=== PATIENT | male | born 1935 | race Caucasian/White ===

== ENCOUNTER 2019-04-01 19:13 | Inpatient (IN) | payer MEDICARE, BC ==
[~2019-04-01] VITALS: Ht 157.5 cm; Wt 57.2 kg
--- NOTE | 2019-04-01 21:50 | NUR ---
Pt. admitted to MHU , under care of Dr. CARABALLO Belongs List completed. MRSA swab done
[2019-04-01] MEDS ORDERED: LORAZEPAM 0.5 MG TABLET PO PRN (22:00)
[2019-04-01] MEDS ORDERED: TEMAZEPAM 7.5 MG CAPSULE PO PRN (22:00)
[2019-04-01] MEDS ORDERED: BLOOD SUGAR DIAGNOSTIC 1 EACH STRIP VI ONE (22:00)
[2019-04-01] MEDS ORDERED: MAGNESIUM HYDROXIDE 30 ML LIQUID UDC PO PRN (22:00)
[2019-04-01 22:29] VITALS: BP 146/70
[2019-04-01] MEDS: ACETAMINOPHEN 325 MG TABLET PO PRN (22:38)
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
[2019-04-02 07:30] VITALS: BP 149/62
[2019-04-02 08:27] LABS: CREATININE 1.1 mg/dL (0.6-1.3); TOTAL PROTEIN, SERUM 5.6 g/dL (6.4-8.2)
--- NOTE | 2019-04-02 09:00 | NUR ---
Received patient awake, alert and oriented x3 in his assigned bed. Bed is in low and locked position. Respirations are even and unlabored, no signs of respiratory distress noted. Patient is able to provide self care and ADL's independently. patient able to ambulate independently with a FWW. patient denies SI/HI, denies AH/Vh. Patient is guarded, withdrawn, and isolative to his assigned room. He is encouraged to participate in the unit milieu. Will continue to monitor.
[2019-04-02 09:03] LABS: BILIRUBIN,TOTAL 0.3 mg/dL (0.2-1.0); POTASSIUM 3.9 mmol/L (3.5-5.1)
--- NOTE | 2019-04-02 13:15 | NUR ---
Blood sugar 202. Patient refused to eat his lunch. Patient has no signs or symptoms of hyperglycemia. Educated about signs and symptoms and instructed to inform staff if these symptoms occur, able to verbalize understanding of education. patient encouraged to drink water as tolerated. alert and oriented x3. resting quietly and comfortably in his assigned bed.
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
--- NOTE | 2019-04-02 15:06 | NUR ---
Social Work/Initial Discharge Note: Patient [place] [address] [place] [address] ([phone]) with his son Jason Elliott ([phone]) and granddaughter Ivonne Wagner. Patient will be returning back home upon discharge. SW will continue to work with patient, family, and MD to ensure a safe and proper discharge plan.
--- NOTE | 2019-04-02 15:19 | NUR ---
Social Work/Firearms Report (DOJ): Cable Tool Operator completed and submitted a [employer] firearms report for 5150 danger to self certification. A copy of report has been placed in patient chart.
[2019-04-02 16:00] VITALS: BP 133/85
[2019-04-02] MEDS: ESCITALOPRAM OXALATE 10 MG TABLET PO SCH (16:06)
[2019-04-02] MEDS ORDERED: ALBUTEROL SULFATE 2.5 MG/3 ML NEBU IH PRN (17:00)
[2019-04-02] MEDS ORDERED: DEXTROSE 50% 50 ML DISP.SYRIN IV PRN (17:00)
[2019-04-02] MEDS ORDERED: Medication Not On Formulary EA (Melatonin 0.5 MG) PO PRN (17:00)
[2019-04-02] MEDS ORDERED: DOCUSATE SODIUM 100 MG CAPSULE PO SCH (17:00)
[2019-04-02] MEDS ORDERED: BISACODYL 10 MG SUPP.RECT RC PRN (17:00)
--- NOTE | 2019-04-02 17:40 | NUR ---
Blood sugar 199. Patient is showing no signs or symptoms of hyperglycemia. Educated about signs of symptoms of hyperglycemia and instructed to inform staff if these symptoms occur, able to verbalize understanding. Waiting for dinner trays at this time.
--- NOTE | 2019-04-02 18:29 | NUR ---
This sign writer letterer or painter spoke with patient's daughter. Patient's daughter provided an updated,current medication list for the patient that was provided by patient's primary care provider. Sales Producer updated patient's home medications in the medication reconciliation. Notified STAGE HAND, waiting call back.
[2019-04-02 20:20] VITALS: BP 150/67
[2019-04-02] MEDS ORDERED: HEPARIN SODIUM,PORCINE 5,000 UNITS/ML VIAL SQ SCH (21:00)
[2019-04-02] MEDS ORDERED: INSULIN GLARGINE,HUM 300 UNITS/3 ML CARTRIDGE SQ SCH (21:00)
[2019-04-02] MEDS: MIRTAZAPINE 15 MG TABLET PO SCH (21:22)
[2019-04-02] MEDS: BLOOD SUGAR DIAGNOSTIC 1 EACH STRIP VI SCH (21:22)
--- NOTE | 2019-04-02 22:00 | NUR ---
received to care, lying in bed, initially asleep, but easy to awaken. continues to deny feeling suicidal, but admits to feeling "very depressed". he was started on remeron this evening. blood sugar was 211, but coverage was not given, due to his poor intake, and continued refusal to eat anything. pt was educated on, and denied any sx of hyperglycemia. po fluids were given, and left at his bedside. as of 0, he appears to be asleep. no distress noted. will continue to monitor closely.
[2019-04-03] MEDS: BLOOD SUGAR DIAGNOSTIC 1 EACH STRIP VI SCH ×4 (06:55→21:10)
[2019-04-03 07:30] VITALS: BP 140/52
[2019-04-03] MEDS: ESCITALOPRAM OXALATE 10 MG TABLET PO SCH (08:30)
[2019-04-03] MEDS ORDERED: FAMOTIDINE 20 MG TABLET PO SCH (09:00)
[2019-04-03] MEDS ORDERED: Medication Not On Formulary EA (Escitalopram Oxalate (Lexapro) 5 MG) PO SCH (09:00)
[2019-04-03] MEDS: MAG HYDROX/AL HYDROX/SIMETH 30 ML LIQUID UDC PO PRN (10:12)
--- NOTE | 2019-04-03 11:45 | NUR ---
Gps/Terminal Make Up Operator- Showered by PRODUCT/INDUSTRY CONSULTANT. Compliant with routine meds., complained of indigestion, mylanta 30 ml was administered po with relief. Encouraged to attend his group therapy, encouraged continued verbalizations of his feelings and needs. Encouraged to eat well..Wants to eat at a later time this pm, claimed he is tired and sleepy,, BS 305 , insulin sliding scale as ordered, administered.
[2019-04-03] MEDS: INSULIN REGULAR, HUMAN 300 UNIT/3 ML VIAL SQ PRN ×3 (12:14→21:16)
--- NOTE | 2019-04-03 15:56 | NUR ---
Gps/Recreation Manager-Allen Garcia OUTREACH NURSE in to see patient, reminded to review, and check . reconciliation of patient's medications
--- NOTE | 2019-04-03 17:48 | NUR ---
Gps/Functional Support Analyst- Suzy in to visit patient, interacting with patient.
[2019-04-03 18:00] VITALS: BP 108/39
[2019-04-03 20:00] VITALS: BP 123/54
[2019-04-03] MEDS: TAMSULOSIN HCL 0.4 MG CAP.SR.24H PO SCH (20:43)
[2019-04-03] MEDS: ATORVASTATIN 40 MG TABLET PO SCH (20:43)
[2019-04-03] MEDS: MIRTAZAPINE 15 MG TABLET PO SCH (20:44)
[2019-04-03] MEDS: INSULIN GLARGINE,HUM 300 UNITS/3 ML CARTRIDGE SQ SCH (21:13)
[2019-04-03] MEDS: OLOPATADINE 0.1% OPHT DROP 5 ML BOTTLE EACHEYE SCH (21:32)
--- NOTE | 2019-04-03 22:00 | NUR ---
received to care, lying in bed, pleasant upon approach. no interactions with peers. continues to deny feeling suicidal, but admits to feeling "depressed". compliant with medications, blood sugar check, and bedtime snacks. as of 2200, he appears to be asleep. no distress noted. will continue to monitor closely.
[2019-04-04] MEDS: PANTOPRAZOLE SODIUM 40 MG TABLET.DR PO SCH (06:21)
[2019-04-04] MEDS: BLOOD SUGAR DIAGNOSTIC 1 EACH STRIP VI SCH ×4 (06:29→22:49)
--- NOTE | 2019-04-04 06:30 | NUR ---
slept well. AM blood sugar was 55; 6 oz of orange juice wa sgiven. pt does not exhibit any, and denies any sx of hypoglycemia. will continue to monitor closely.
[2019-04-04 07:30] VITALS: BP 99/46
[2019-04-04] MEDS ORDERED: SUCRALFATE 1 G TABLET PO SCH (09:00)
[2019-04-04] MEDS: CLOPIDOGREL 75 MG TABLET PO SCH (09:12)
[2019-04-04] MEDS: ASPIRIN 81 MG TAB.CHEW PO SCH (09:13)
[2019-04-04] MEDS: ESCITALOPRAM OXALATE 10 MG TABLET PO SCH (09:13)
[2019-04-04] MEDS: FERROUS SULFATE 325 MG TABEC PO SCH (09:13)
[2019-04-04] MEDS: FINASTERIDE 5 MG TABLET PO SCH (09:56)
[2019-04-04] MEDS: CALCIUM CARB/VITAMIN D 600-400 MG TABLET PO SCH ×2 (09:56→18:00)
[2019-04-04] MEDS: OLOPATADINE 0.1% OPHT DROP 5 ML BOTTLE EACHEYE SCH ×2 (10:19→21:00)
--- NOTE | 2019-04-04 12:45 | NUR ---
Gps/Bituminous Paving Machine Operator- BS 58, asymtomatic, encouraged to eat lunch, assisted with meals,patient does not want to eat too much per dispensing and measuring optician r/t indigestions . ate about 25% of his lunch., rachelle offered.
[2019-04-04 16:00] VITALS: BP 128/62
--- NOTE | 2019-04-04 16:20 | NUR ---
Gps/Cloth Washer- ELECTRIC SWITCH REPAIRER calling for assist, found pt. in his room on the floor, while trying to go to the bathroom, using a front wheel walker.Got pt. up 2 staff assisting, ambulated back to bed, b/p 128/63 Blood sugar checked 57, snacks offered, pudding given, cal cracker given Charged Nurse notified Allen Garcia TECHNICAL WRITER AND EDITOR, orders received , CT of head .
--- NOTE | 2019-04-04 16:46 | NUR ---
Gps/Hot Punch Press Operator- Patient was taken to CT of head via wheel chair accompanied by CUTTING SUPERVISOR. Patient complained of pain in the back of his head r/t to his fall.
[2019-04-04] MEDS: ACETAMINOPHEN 325 MG TABLET PO PRN (18:00)
--- NOTE | 2019-04-04 18:00 | NUR ---
Gps/Associate Director Finance- Family in to visit, was informed of the falls. Patient was bale to drink Glucerna during dinner, refused to eat tomoto soup and fruits claimed it gives hi indigestion, does not want anything acidic.
--- NOTE | 2019-04-04 18:43 | NUR ---
Gps/Cementer Machine- Kept patient up in his landry-chair , by the Nurses station, monitoring needs and safety. Family was in to visit, was informed of the incident (fall)
[2019-04-04] MEDS: TAMSULOSIN HCL 0.4 MG CAP.SR.24H PO SCH (20:54)
[2019-04-04] MEDS: ATORVASTATIN 40 MG TABLET PO SCH (20:54)
[2019-04-04] MEDS: MIRTAZAPINE 15 MG TABLET PO SCH (20:54)
[2019-04-04 21:01] VITALS: BP 92/48
[2019-04-04] MEDS: INSULIN GLARGINE,HUM 300 UNITS/3 ML CARTRIDGE SQ SCH (22:49)
[2019-04-04] MEDS: INSULIN REGULAR, HUMAN 300 UNIT/3 ML VIAL SQ PRN (22:51)
--- NOTE | 2019-04-05 06:23 | NUR ---
GPS/NSG Patient first observed awake, alert and oriented x3 with a 1:1 sitter for safety, patient suffered a fall the previous shift. Bed is in low and locked position. Initial vital signs reported B/P to be 84/40, when repeated B/P was 92/48 no signs of respiratory distress noted. Neuro checks performed Q 30 mins X four hours. Pupils equal and reactive, patient able to follow commands, hand transmission specialist appeared strong, reported a mild headache prn offered. Patient compliant with HS medication, compliant with accucheck BS= 264 coverage administered as ordered, snack provided fluids encouraged, Patient placed in a modified Trendelenburg position to create improved perfusion. B/P rechecked 103/57 @2100, 136/79 @ 2200, 137/81 @ 0030. Patient slept through night with no apparent distress. Last reported Vital signs; B/P @0630 142/59, HR 55. Addendum: 04/05/19 at 0657 by GUERITA BEDOLLA RN GPS/NSG continue: Patient awake this a.m. A/OX3, KC=828. Continue 1:1 sitter within arm length at all times for safety, patient is at increased risk for falls. CT scan resulted in no intracranial hemorrhage after recent fall. Will continue to monitor patient for safety as well as provide a therapeutic environment.
[2019-04-05 07:30] VITALS: BP 118/63
[2019-04-05] MEDS ORDERED: SUCRALFATE 1 G TABLET PO SCH (07:30)
[2019-04-05] MEDS: BLOOD SUGAR DIAGNOSTIC 1 EACH STRIP VI SCH ×4 (08:32→21:28)
[2019-04-05] MEDS: ASPIRIN 81 MG TAB.CHEW PO SCH (08:33)
[2019-04-05] MEDS: ESCITALOPRAM OXALATE 10 MG TABLET PO SCH (08:33)
[2019-04-05] MEDS: FINASTERIDE 5 MG TABLET PO SCH (08:33)
[2019-04-05] MEDS: OLOPATADINE 0.1% OPHT DROP 5 ML BOTTLE EACHEYE SCH ×2 (08:33→21:04)
[2019-04-05] MEDS: CLOPIDOGREL 75 MG TABLET PO SCH (08:33)
[2019-04-05] MEDS: FERROUS SULFATE 325 MG TABEC PO SCH (08:33)
[2019-04-05] MEDS: PANTOPRAZOLE SODIUM 40 MG TABLET.DR PO SCH (08:36)
[2019-04-05] MEDS: CALCIUM CARB/VITAMIN D 600-400 MG TABLET PO SCH ×2 (08:39→17:42)
[2019-04-05] MEDS: INSULIN REGULAR, HUMAN 300 UNIT/3 ML VIAL SQ PRN ×3 (13:15→21:29)
[2019-04-05 15:38] VITALS: BP 123/52
[2019-04-05 20:00] VITALS: BP 118/60
[2019-04-05] MEDS: INSULIN GLARGINE,HUM 300 UNITS/3 ML CARTRIDGE SQ SCH (21:00)
[2019-04-05] MEDS: ATORVASTATIN 40 MG TABLET PO SCH (21:02)
[2019-04-05] MEDS: MIRTAZAPINE 15 MG TABLET PO SCH (21:02)
[2019-04-05] MEDS: TAMSULOSIN HCL 0.4 MG CAP.SR.24H PO SCH (21:02)
--- NOTE | 2019-04-05 22:00 | NUR ---
received to care, lying in bed, sleeping intermittently, but pleasant upon approach. 1;1 sitter remains at bedside, for safety, due to previous fall. denies any pain or discomfort. he is compliant with medications, but refused to eat any snacks. blood sugar was 161, but he refused any insulin coverage. he remains asymptomatic. as of 2199, he remains asleep. no distress noted. will continue to monitor closely. Addendum: 04/06/19 at 0058 by NIKITA GUILLEN LVN vital signs are stable.
--- NOTE | 2019-04-06 06:00 | NUR ---
slept 8.5 hours, total. was up a few times during the night, to go to the restroom. 1;1 sitter remains at bedside. no distress noted.
[2019-04-06] MEDS: BLOOD SUGAR DIAGNOSTIC 1 EACH STRIP VI SCH ×4 (06:11→21:07)
[2019-04-06] MEDS: PANTOPRAZOLE SODIUM 40 MG TABLET.DR PO SCH (06:11)
[2019-04-06 07:30] VITALS: BP 104/76
[2019-04-06] MEDS: SUCRALFATE 1 G TABLET PO SCH ×3 (08:09→16:47)
[2019-04-06] MEDS: OLOPATADINE 0.1% OPHT DROP 5 ML BOTTLE EACHEYE SCH ×2 (08:15→20:57)
[2019-04-06] MEDS: CLOPIDOGREL 75 MG TABLET PO SCH (08:55)
[2019-04-06] MEDS: ASPIRIN 81 MG TAB.CHEW PO SCH (08:55)
[2019-04-06] MEDS: FERROUS SULFATE 325 MG TABEC PO SCH (08:55)
[2019-04-06] MEDS: CALCIUM CARB/VITAMIN D 600-400 MG TABLET PO SCH ×2 (08:55→16:47)
[2019-04-06] MEDS: ESCITALOPRAM OXALATE 10 MG TABLET PO SCH (08:55)
[2019-04-06] MEDS: FINASTERIDE 5 MG TABLET PO SCH (08:58)
[2019-04-06] MEDS: INSULIN REGULAR, HUMAN 300 UNIT/3 ML VIAL SQ PRN ×4 (09:03→21:17)
[2019-04-06 17:01] VITALS: BP 110/51
[2019-04-06 20:00] VITALS: BP 137/57
[2019-04-06] MEDS: MIRTAZAPINE 15 MG TABLET PO SCH (20:55)
[2019-04-06] MEDS: ATORVASTATIN 40 MG TABLET PO SCH (20:55)
[2019-04-06] MEDS: TAMSULOSIN HCL 0.4 MG CAP.SR.24H PO SCH (20:55)
[2019-04-06] MEDS: INSULIN GLARGINE,HUM 300 UNITS/3 ML CARTRIDGE SQ SCH (21:16)
--- NOTE | 2019-04-06 22:00 | NUR ---
received to care, lying in bed, sleeping,but pleasant upon approach. 1;1 sitter remains at bedside, for safety. he remains compliant with medications, and staff assist. bedtime snack given, along with insulin coverage. as of 2200, he remains asleep. no distress noted. will continue to monitor closely.
--- NOTE | 2019-04-07 06:00 | NUR ---
slept 5.25 hours, total. continues to sleep. 1;1 sitter remains at side. no distress noted.
[2019-04-07] MEDS: PANTOPRAZOLE SODIUM 40 MG TABLET.DR PO SCH (06:26)
[2019-04-07] MEDS: BLOOD SUGAR DIAGNOSTIC 1 EACH STRIP VI SCH ×4 (06:26→20:41)
[2019-04-07 07:30] VITALS: BP 134/55
[2019-04-07] MEDS: SUCRALFATE 1 G TABLET PO SCH ×3 (07:43→16:34)
[2019-04-07] MEDS: CALCIUM CARB/VITAMIN D 600-400 MG TABLET PO SCH ×2 (08:05→16:34)
[2019-04-07] MEDS: OLOPATADINE 0.1% OPHT DROP 5 ML BOTTLE EACHEYE SCH ×2 (08:05→20:36)
[2019-04-07] MEDS: ASPIRIN 81 MG TAB.CHEW PO SCH (08:05)
[2019-04-07] MEDS: ESCITALOPRAM OXALATE 10 MG TABLET PO SCH ×2 (08:06→16:34)
[2019-04-07] MEDS: CLOPIDOGREL 75 MG TABLET PO SCH (08:06)
[2019-04-07] MEDS: FINASTERIDE 5 MG TABLET PO SCH (08:06)
[2019-04-07] MEDS: FERROUS SULFATE 325 MG TABEC PO SCH (08:06)
--- NOTE | 2019-04-07 09:45 | NUR ---
Received patient awake in his assigned bed. Bed is in low and locked position with bilateral upper side rails up. Patient has a 1:1 sitter by his bedside. Patient is alert and oriented x3. He is medication adherent, no adverse reaction noted. Patient is able to tolerate food and fluids, ate his breakfast independently. Patient is able to ambulate with FWW with staff assistance. Patient is showing no signs or symptoms of hypo/hyperglycemia at this time. Patient encouraged to drink fluids as tolerated. Patient denies SI/HI, denies AH/VH. He is quiet and withdrawn to his room but has appropriate interaction with staff. Patient is able to communicate his needs appropriately to staff. Will continue to monitor.
--- NOTE | 2019-04-07 10:50 | NUR ---
Social Work/Discharge Planning: Non Food Receiving Clerk faxed patient's referral packet including: History and Physical, Consultation, Progress Notes, Medication List and Labs to the following facilities for review and possible long term placement: [facility]Note 3] attention xiomara Boothe Addendum: 04/07/19 at 1615 by ORQUIDEA DHALIWAL Patient is not accepted to facility due to recent suicidal ideation and attempt.
[2019-04-07] MEDS: INSULIN REGULAR, HUMAN 300 UNIT/3 ML VIAL SQ PRN (12:13)
--- NOTE | 2019-04-07 12:44 | NUR ---
Blood Sugar 147. 2 units of insulin given per sliding scale. Patient tolerated well. Patient is eating lunch independently, able to tolerate food and fluid well. Patient is alert and oriented x4. Calm, cooperative.
[2019-04-07 15:50] VITALS: BP 120/59
--- NOTE | 2019-04-07 16:16 | NUR ---
Social Work/Discharge Planning: Canal Boat Captain faxed patient's referral packet including: History and Physical, Consultation, Progress Notes, Medication List and Labs to [facility] replaced by [facility] [phone]. Patient is accepted to facility upon discharge.
[2019-04-07 20:00] VITALS: BP 130/50
[2019-04-07] MEDS: MIRTAZAPINE 15 MG TABLET PO SCH (20:38)
[2019-04-07] MEDS: ATORVASTATIN 40 MG TABLET PO SCH (20:38)
[2019-04-07] MEDS: TAMSULOSIN HCL 0.4 MG CAP.SR.24H PO SCH (20:40)
[2019-04-07] MEDS: INSULIN GLARGINE,HUM 300 UNITS/3 ML CARTRIDGE SQ SCH (20:45)
[2019-04-07] MEDS: MAG HYDROX/AL HYDROX/SIMETH 30 ML LIQUID UDC PO PRN (22:58)
--- NOTE | 2019-04-08 00:39 | NUR ---
RECEIVED PATIENT IN BED WITH 1;1 SITTER BY HIS SAD.HE APPEARED QUIET AND WITHDRAWN BUT ABLE TO RESPOND APPROPRIATELY AND INTERACT WITH STAFF BRIEFLY. ABLE TO MAKE NEEDS KNOWN. DENIES SI/HI.HE IS MEDICATION COMPLIANT.BS CHECK WAS 178.INSULIN LANTUS 30UNITS WAS GIVEN FOR COVERAGE.AT THIS TIME NO HYPOGLYCEMIA NOTED. WILL CONTINUE WITH MONITORING.
--- NOTE | 2019-04-08 06:23 | NUR ---
SLEPT FOR ABOUT 5;45HRS.HAS A 1;1 SITTER BY HIS SIDE.BLOOD SUGAR CHECK THIS MORNING IS 165.
[2019-04-08] MEDS: PANTOPRAZOLE SODIUM 40 MG TABLET.DR PO SCH (06:32)
[2019-04-08] MEDS: BLOOD SUGAR DIAGNOSTIC 1 EACH STRIP VI SCH ×4 (06:33→20:55)
[2019-04-08] MEDS: SUCRALFATE 1 G TABLET PO SCH ×3 (06:36→17:15)
--- NOTE | 2019-04-08 07:30 | NUR ---
RECIEVED PT IN BED WITH 1;1 SITTER , AWAKE, ALERT AND ORIENTEDX2. PT APPEARS CALM, DENIES OF ANY SUICIDAL THOUGHTS AT THIS TIME.
[2019-04-08] MEDS: INSULIN GLARGINE,HUM 300 UNITS/3 ML CARTRIDGE SQ SCH ×2 (08:05→20:58)
[2019-04-08] MEDS: INSULIN REGULAR, HUMAN 300 UNIT/3 ML VIAL SQ PRN ×3 (08:15→21:00)
[2019-04-08 08:25] VITALS: BP 120/54
[2019-04-08] MEDS: FINASTERIDE 5 MG TABLET PO SCH (08:41)
[2019-04-08] MEDS: CALCIUM CARB/VITAMIN D 600-400 MG TABLET PO SCH ×2 (08:41→17:15)
[2019-04-08] MEDS: CLOPIDOGREL 75 MG TABLET PO SCH (08:41)
[2019-04-08] MEDS: OLOPATADINE 0.1% OPHT DROP 5 ML BOTTLE EACHEYE SCH ×2 (08:41→20:55)
[2019-04-08] MEDS: ASPIRIN 81 MG TAB.CHEW PO SCH (08:42)
[2019-04-08] MEDS: FERROUS SULFATE 325 MG TABEC PO SCH (08:42)
--- NOTE | 2019-04-08 12:00 | NUR ---
Seen and examined by Dr Bob, notes said possible d/c in am.
[2019-04-08] MEDS: ESCITALOPRAM OXALATE 10 MG TABLET PO SCH ×2 (12:36→17:15)
--- NOTE | 2019-04-08 14:00 | NUR ---
Pt was seen by psychotherapy consult.
--- NOTE | 2019-04-08 14:00 | NUR ---
PT IS PARTICIPATING IN THE GROUP THERAPY ACTIVITY .
[2019-04-08 15:54] VITALS: BP 130/61
--- NOTE | 2019-04-08 16:15 | NUR ---
Social Work/Family Contact: SW spoke with patient's son, Jason Elliott ([phone]) regarding patient acceptance to [facility] upon discharge. Jason stated that he does not want his father to go to a halfway. This poem writer informed that it will be discussed with the psychiatrist and get back to him tomorrow. Ivonne is the patient's granddaughter/DPOA ([phone]) and is aware of this as well and does not agree with a halfway.
[2019-04-08] MEDS: TAMSULOSIN HCL 0.4 MG CAP.SR.24H PO SCH (20:39)
[2019-04-08] MEDS: MIRTAZAPINE 15 MG TABLET PO SCH (20:39)
[2019-04-08] MEDS: ATORVASTATIN 40 MG TABLET PO SCH (20:39)
[2019-04-08 21:49] VITALS: BP 111/43
[2019-04-09] MEDS: PANTOPRAZOLE SODIUM 40 MG TABLET.DR PO SCH (06:31)
[2019-04-09] MEDS: SUCRALFATE 1 G TABLET PO SCH ×3 (06:31→16:51)
[2019-04-09] MEDS: BLOOD SUGAR DIAGNOSTIC 1 EACH STRIP VI SCH ×5 (06:32→21:03)
[2019-04-09 07:30] VITALS: BP 139/58
--- NOTE | 2019-04-09 07:30 | NUR ---
Received patient in bed sleeping easily arousable, AAOx2-3. 1:1 sitter at bedside. Patient pleasant follow commands.
[2019-04-09] MEDS: ASPIRIN 81 MG TAB.CHEW PO SCH (08:12)
[2019-04-09] MEDS: CLOPIDOGREL 75 MG TABLET PO SCH (08:12)
[2019-04-09] MEDS: FERROUS SULFATE 325 MG TABEC PO SCH (08:12)
[2019-04-09] MEDS: FINASTERIDE 5 MG TABLET PO SCH (08:12)
[2019-04-09] MEDS: OLOPATADINE 0.1% OPHT DROP 5 ML BOTTLE EACHEYE SCH ×2 (08:12→21:17)
[2019-04-09] MEDS: CALCIUM CARB/VITAMIN D 600-400 MG TABLET PO SCH ×2 (08:13→16:52)
[2019-04-09] MEDS: INSULIN GLARGINE,HUM 300 UNITS/3 ML CARTRIDGE SQ SCH ×2 (08:14→21:06)
[2019-04-09] MEDS: INSULIN REGULAR, HUMAN 300 UNIT/3 ML VIAL SQ PRN ×3 (11:48→21:07)
[2019-04-09] MEDS: ESCITALOPRAM OXALATE 10 MG TABLET PO SCH ×2 (12:13→16:51)
[2019-04-09 16:00] VITALS: BP 153/63
[2019-04-09] MEDS: MIRTAZAPINE 15 MG TABLET PO SCH (20:48)
[2019-04-09] MEDS: TAMSULOSIN HCL 0.4 MG CAP.SR.24H PO SCH (20:48)
[2019-04-09] MEDS: ATORVASTATIN 40 MG TABLET PO SCH (20:48)
[2019-04-09 20:59] VITALS: BP 125/65
--- NOTE | 2019-04-09 22:00 | NUR ---
received to care, lying in bed, pleasant upon approach. 1;1 sitter remains at bedside, for safety. continues to deny SI, or desire to harm self. he remains compliant with medications, and staff assist. bedtime snack given, along with insulin coverage. as of 0, he remains asleep. no distress noted. will continue to monitor closely.
[2019-04-10] MEDS: PANTOPRAZOLE SODIUM 40 MG TABLET.DR PO SCH (06:12)
[2019-04-10] MEDS: BLOOD SUGAR DIAGNOSTIC 1 EACH STRIP VI SCH ×2 (06:12→12:25)
--- NOTE | 2019-04-10 06:13 | NUR ---
LOW BLOOD SUGAR NOTE; slept well, last night. AM accucheck is 44; pt is asymptomatic. 6 oz of orange juice, with sugar was given. 1;1 sitter remains at bedside, for safety monitoring. will reevaluate in 30 minutes.
--- NOTE | 2019-04-10 06:54 | NUR ---
LOW BLOOD SUGAR NOTE; blood sugar is now 105. pt remains asymptomatic. sitter remains at side.
[2019-04-10 07:30] VITALS: BP 146/64
[2019-04-10] MEDS: INSULIN GLARGINE,HUM 300 UNITS/3 ML CARTRIDGE SQ SCH (07:46)
[2019-04-10] MEDS: SUCRALFATE 1 G TABLET PO SCH ×2 (07:52→12:25)
[2019-04-10] MEDS: FERROUS SULFATE 325 MG TABEC PO SCH (08:43)
[2019-04-10] MEDS: ASPIRIN 81 MG TAB.CHEW PO SCH (08:43)
[2019-04-10] MEDS: CLOPIDOGREL 75 MG TABLET PO SCH (08:43)
[2019-04-10] MEDS: CALCIUM CARB/VITAMIN D 600-400 MG TABLET PO SCH (08:44)
[2019-04-10] MEDS: FINASTERIDE 5 MG TABLET PO SCH (08:45)
[2019-04-10] MEDS: OLOPATADINE 0.1% OPHT DROP 5 ML BOTTLE EACHEYE SCH (08:50)
--- NOTE | 2019-04-10 09:48 | NUR ---
Social Work/Discharge Note: [place] [address] [place] [address]. Patients son, Jason Elliott ([phone]) has agreed to provide transportation for the patient at 1pm today. Patient is alert and oriented x3 and is able to plan for self-care. Patient denies any suicidal or homicidal ideation. Patient is aware and agreeable with discharge plans. Patient presents with normal mood and congruent affect. Patient will follow up with his Primary Care Physician Dr. Dr. Jeanmarie Smith and has a follow up appointment scheduled for Monday April 15, 2019 at 10:00AM. Patient was referred for home health services by [facility] ([phone]) for medication management, physical therapy, and nursing follow ups. Patient will be following up with outpatient psychiatric services at [facility] [address] [place] [phone] ([phone]) and has an appointment scheduled for April 18, 2019 at 12pm for an Intake appointment. SW faxed patients discharge packet (fax: [phone]) attention to [place]. Patient was provided additional mental health referrals to [facility] and the National Suicide Prevention Lifeline .
--- NOTE | 2019-04-10 10:22 | NUR ---
Gps/Ruby On Rails Web Developer- Discharge planning in progress, family to provide transportation.Patient will be followed by Dr Jeanmarie Smith ,appointment of monday April 15, 2019 at 1000 am. Home Health arranged.
[2019-04-10] MEDS: ESCITALOPRAM OXALATE 10 MG TABLET PO SCH (12:29)
--- NOTE | 2019-04-10 13:47 | NUR ---
Gps/Furnace Hand- Patient's son Jason and grand daughter were in to roll picker patient. Reviewed discharged instructions, diet(diabetic diet- No concentrated sweets) , low salt ., skin care , mediciations/prescriptions, insulin administrations,, safety emphasized, follow up with his Primary medical Doctor(Dr Jeanmarie Smith) and Filler Block Inserter Remover as soon as possible, both verbalized understanding. All belongings returned back to patient. Discharged to home via private car, in good spirit, no new c/o offered.Patient verbalized happy to be able to go home.
== END 2019-04-10 13:57 | disposition home health service (06) | DRG 885 ==
LOC: ER 19:16 → GPS 21:52
PROVIDERS: ADMIT Psychiatry & Neurology Psychosomatic Medicine; ATTEND Nurse Practitioner Acute Care
DX: F32.2 Major depressive disorder, single episode, severe without psychotic features (principal); N18.9 Chronic kidney disease, unspecified; E11.65 Type 2 diabetes mellitus with hyperglycemia; I13.0 Hypertensive heart and chronic kidney disease with heart failure and stage 1 through stage 4 chronic kidney disease, or unspecified chronic kidney disease; I50.32 Chronic diastolic (congestive) heart failure; E87.1 Hypo-osmolality and hyponatremia; D68.59 Other primary thrombophilia; K21.9 Gastro-esophageal reflux disease without esophagitis; S31.119D Laceration without foreign body of abdominal wall, unspecified quadrant without penetration into peritoneal cavity, subsequent encounter; X78.1XXD Intentional self-harm by knife, subsequent encounter; E11.22 Type 2 diabetes mellitus with diabetic chronic kidney disease; I48.0 Paroxysmal atrial fibrillation; J44.9 Chronic obstructive pulmonary disease, unspecified; E78.5 Hyperlipidemia, unspecified; Z79.4 Long term (current) use of insulin; Z86.73 Personal history of transient ischemic attack (TIA), and cerebral infarction without residual deficits; E03.9 Hypothyroidism, unspecified; E11.51 Type 2 diabetes mellitus with diabetic peripheral angiopathy without gangrene; G93.89 Other specified disorders of brain; E86.1 Hypovolemia; Z87.891 Personal history of nicotine dependence; F09 Unspecified mental disorder due to known physiological condition
CPT/HCPCS: 36415; 70450; A4663; J1815